=== PATIENT | female | born 1980 | race Caucasian/White ===

== ENCOUNTER → 2019-05-13 | Outpatient (CLI) | payer OTHER ==
[~2019-05-13] MED LIST: NO HOME MEDICATIONS; NORCO 325 MG-51 TAB PO; PERCOCET 325 MG1 TA2 PO; PROTONIX 40MG T40 MG PO; TAGAMET400 MG PO; ZOFRAN 4MG T4 MG/TAB PO
== END ==
LOC: COL.RAD 22:21
DX: R10.2 Pelvic and perineal pain (principal)

== ENCOUNTER → 2019-06-08 | Outpatient (CLI) | payer OTHER | LOC: COL.RAD 09:43 | DX: G58.9 Mononeuropathy, unspecified (principal) ==

== ENCOUNTER → 2019-08-06 | Outpatient (CLI) | payer OTHER | LOC: COL.RAD 10:09 | DX: G93.89 Other specified disorders of brain (principal); R29.810 Facial weakness; M25.571 Pain in right ankle and joints of right foot; M25.572 Pain in left ankle and joints of left foot; R20.0 Anesthesia of skin; R20.2 Paresthesia of skin | CPT/HCPCS: A9585 ==

== ENCOUNTER 2019-08-27 08:13 | Outpatient (CLI) | payer OTHER ==
--- NOTE | 2019-08-22 14:07 | NUR ---
SPOKE TO PT AND GAVE INSTRUCTIONS FOR PRE PROCEDURE. PT HAD LOTS OF QUESTIONS THESES WERE ANSWERED.
[~2019-08-27] VITALS: Ht 160 cm; Wt 98.5 kg
[~2019-08-27 08:13] MED LIST changes: +ROBAXIN 50500 MG/TAB PO; +TYLENOL 325MG325 MG PO
[2019-08-27 08:25] VITALS: BP 151/88; PULSE 94
--- NOTE | 2019-08-27 08:31 | NUR ---
CALLED AND LET RAD KNOW.
[2019-08-27 09:00] VITALS: BP 113/77; PULSE 85
[2019-08-27 09:15] VITALS: BP 106/71; PULSE 90
[2019-08-27 09:30] VITALS: BP 117/79; PULSE 90
[2019-08-27 09:45] VITALS: BP 122/83; PULSE 83
[2019-08-27 09:45] LABS: GLUCOSE,CSF 56 mg/dL (40-70); TOTAL PROTEIN,CSF 15 mg/dL (15-45)
[2019-08-27 10:01] LABS: CSF APPEARANCE CLEAR; CSF COLOR COLORLESS; CSF RBC 1 /mm3 (0-0)
[2019-08-27 10:02] LABS: CSF MONONUCLEAR 100 % (70-100); CSF POLYMORPHONUCLEAR 0 % (0-6)
--- NOTE | 2019-08-27 10:20 | NUR ---
PT TAKEN TO PT ENTRANCE AND GO INTO POV. WENT OVER DC INFORMATION VERBALLY AND WRITTEN INFO GIVEN.
== END 2019-08-27 15:43 | disposition home or self-care (01) ==
LOC: COL.RAD 08:13
PROVIDERS: Psychiatry & Neurology Neurology
DX: G35 Multiple sclerosis (principal)

== ENCOUNTER 2020-07-05 16:51 | Emergency (ER) | payer OTHER ==
[~2020-07-05] VITALS: Ht 160 cm; Wt 101.8 kg
[2020-07-05 16:56] VITALS: BP 160/88; TEMP 98.4
[2020-07-05 17:11] LABS: COLLECTION METHOD CLEAN CATCH
[2020-07-05 17:19] LABS: BASO # 0.1 (0.0-0.2); BASO % 0.6 % (0.0-2.0); EOS # 0.2 (0.0-0.7); EOS % 1.5 % (0-4.0); GRAN # 5.3 (1.4-6.5); HEMOGLOBIN 12.4 g/dl (12.5-16.0); LYMPH # 4.4 (1.2-3.4); LYMPH % 40.4 % (20.0-51.0); MEAN CELL VOLUME 87 fl (80.0-100.0); MEAN CORPUSCULAR HEMOGLOBIN 28 pg (27.0-31.0); MEAN CORPUSCULAR HGB CONC 32 g/dl (33.0-37.0); MEAN PLATELET VOLUME 9.4 fl (7.4-10.4); MONO # 0.9 (0.1-0.6); MONO % 8.1 % (1.7-9.3); PLATELET COUNT 369 K/mm3 (130-400); RED BLOOD COUNT 4.49 M/mm3 (4.10-5.30); REDCELL DISTRIBUTION WIDTH-CV 12.9 % (11.5-14.5)
[2020-07-05 17:21] LABS: MUCOUS Present /lpf; PH 5 (5-8); URINE APPEARANCE Hazy; URINE BACTERIA Rare /hpf; URINE BILIRUBIN Positive (NEGATIVE); URINE BLOOD Negative (NEGATIVE); URINE COLOR Yellow; URINE GLUCOSE Negative (NEGATIVE); URINE KETONE Negative (NEGATIVE); URINE LEUKOCYTE ESTERASE Trace (NEGATIVE); URINE NITRATE Negative (NEGATIVE); URINE PROTEIN(semi-quant) Negative (NEGATIVE); URINE UROBILINOGEN Negative (NEGATIVE)
[2020-07-05 17:32] LABS: ALBUMIN 4.9 gm/dL (3.5-5.0); BILIRUBIN,TOTAL 0.4 mg/dL (0.0-1.0); CALCIUM 9.6 mg/dL (8.4-10.2); CREATININE, serum 0.89 (0.52-1.25); POTASSIUM 3.9 mmol/L (3.4-5.0); TOTAL PROTEIN 8.5 gm/dL (6.4-8.2)
[2020-07-05 18:23] VITALS: PULSE 82
== END 2020-07-05 18:24 | disposition home or self-care (01) ==
LOC: COL.ER 16:51
PROVIDERS: Emergency Medicine
DX: G89.18 Other acute postprocedural pain (principal); R10.9 Unspecified abdominal pain; Z90.710 Acquired absence of both cervix and uterus; Z90.721 Acquired absence of ovaries, unilateral
CPT/HCPCS: J1200; J2765; J7030; Q9967

== ENCOUNTER → 2020-09-04 | Outpatient (CLI) | payer OTHER | LOC: COL.RAD 12:02 | DX: M25.571 Pain in right ankle and joints of right foot (principal); M25.572 Pain in left ankle and joints of left foot; R29.810 Facial weakness; R20.0 Anesthesia of skin; R20.2 Paresthesia of skin | CPT/HCPCS: A9585 ==

== ENCOUNTER → 2020-12-04 | Outpatient (CLI) | payer OTHER | LOC: COL.RAD 07:34 | DX: N28.9 Disorder of kidney and ureter, unspecified (principal) ==

== ENCOUNTER 2021-09-22 08:19 | Day surgery (SDC) | payer OTHER ==
[~2021-09-22] VITALS: Ht 162.6 cm; Wt 98.8 kg
[2021-09-22] MEDS ORDERED: ZYRTEC 10MG10 MG PO (08:50)
[2021-09-22] MEDS ORDERED: OMEGA-3 1000 MG1 CAP PO (08:51)
[2021-09-22 09:21] VITALS: BP 130/69; PULSE 95; TEMP 98.2
[2021-09-22] MEDS ORDERED: NORCO 325 MG-51 TAB PO (12:27)
[2021-09-22] MEDS ORDERED: PYRIDIUM 100MG100 MG PO (12:27)
[2021-09-22 13:10] VITALS: BP 114/63; PULSE 88; TEMP 98.4
--- NOTE | 2021-09-22 13:10 | NUR ---
PT TO BAY 2 PER CART. VS OBTAINED. CALL LIGHT WITHIN REACH. PT TOLERATING ICE CHIPS AND CRANBERRY JUICE. PT DENIES ANY ADDITIONAL NEEDS AT THIS TIME. WILL CONTINUE TO MONITOR.
[2021-09-22 13:25] VITALS: BP 110/67; PULSE 91
--- NOTE | 2021-09-22 13:25 | NUR ---
PT CONTINUES TO REST COMFORTABLY AND DENIES ANY NEEDS AT THIS TIME. CALL LIGHT WITHIN REACH.
[2021-09-22 13:29] VITALS: TEMP 98
[2021-09-22 13:40] VITALS: BP 107/58; PULSE 88
--- NOTE | 2021-09-22 13:40 | NUR ---
PT CONTINUES TO TOLERATE JUICE AND MUFFIN WITHOUT DIFFICULTY. PT DENIES ANY ADDITIONAL NEEDS AT THIS TIME.
[2021-09-22 13:55] VITALS: BP 103/61; PULSE 80
--- NOTE | 2021-09-22 13:55 | NUR ---
PT RATES PAIN AT 4-5/10. HYDROCODONE 5MG/325MG GIVEN. PT STATES SHE IS READY FOR DISCHARGE.
--- NOTE | 2021-09-22 14:05 | NUR ---
IV DC'D. PT TOLERATED WELL.
--- NOTE | 2021-09-22 14:10 | NUR ---
DISCHARGE EDUCATION COMPLETED WITH PT AND HER DAUGHTER. VERBALIZED UNDERSTANDING OF HOME AND FOLLOW UP CARE. ALL QUESTIONS ANSWERED. DISCHARGE PAPERWORK GIVEN TO PT.
--- NOTE | 2021-09-22 14:30 | NUR ---
PT OFF UNIT PER WHEELCHAIR. PT DISCHARGE TO HOME WITH DAUGHTER PER PERSONAL VEHICLE.
== END 2021-09-22 14:30 | disposition home or self-care (01) ==
LOC: SDCO 08:19
DX: R39.89 Other symptoms and signs involving the genitourinary system (principal); R10.2 Pelvic and perineal pain; R30.0 Dysuria; R93.422 Abnormal radiologic findings on diagnostic imaging of left kidney; N39.46 Mixed incontinence; E66.9 Obesity, unspecified
CPT/HCPCS: J0690; J1100; J1170; J1885; J2250; J2405; J2704; J3010; J7120

== ENCOUNTER → 2021-11-20 | Outpatient (CLI) | payer OTHER ==
[~2021-11-20] MED LIST changes: +OMEGA-3 1000 MG1 CAP PO; +PYRIDIUM 100MG100 MG PO; +ZYRTEC 10MG10 MG PO
== END ==
LOC: COL.RAD 08:08
DX: R90.89 Other abnormal findings on diagnostic imaging of central nervous system (principal)
CPT/HCPCS: A9575